=== PATIENT | male | born 1985 | race Caucasian/White ===

== ENCOUNTER 2024-02-10 05:24 | Day surgery (SDC) | payer OTHER, SELFPAY ==
--- NOTE | 2024-01-27 07:06 | EKG12_ITS ---
Test Reason : PREOP Blood Pressure : */* mmHG Vent. Rate : 64 BPM Atrial Rate : 64 BPM P-R Int : 178 ms QRS Dur : 80 ms QT Int : 382 ms P-R-T Axes : 22 41 62 degrees QTcB Int : 394 ms Normal sinus rhythm Normal ECG Confirmed by Benja Trejo ([id number]), commercial production editor DAPHNE CORDERO ([id number]) on 01/28/2024 5:49:41 AM Referred By: Sony Rivera Confirmed By: Benja Trejo
[2024-01-27 08:56] LABS: Absolute Neutrophil Count 4.9 X10^3/uL (2.0-7.7); Basophil# 0.07 X10^3/uL; Basophil% 0.8 % (0-1); Eosinophil# 0.42 X10^3/uL; Eosinophils% 5.1 % (0-5); Hematocrit 44.1 % (40-54); Hemoglobin 15.6 g/dL (13.0-16.5); Lymphocyte % 26.5 % (19-41); Mean Corp Hgb Conc 35.4 g/dL (32-36); Mean Corpuscular Hgb 31.1 pg (27.0-32.0); Mean Platelet Vol. 9.7 fl (6.2-12.0); Monocyte# 0.71 X10^3/uL; Monocyte% 8.6 % (0-10); NRBC Flagged by Analyzer 0 % (0-5); Neutrophil # 4.85 X10^3/uL (2.7-7.7); Neutrophil % 58.5 % (47-70); Platelet Count 277 K/mm3 (150-450); RBC Distribution Width SD 38.7 fl (35.1-43.9); Red Blood Count 5.01 M/mm3 (4.6-6.2); White Blood Count 8.3 K/mm3 (4.4-11.0)
[2024-01-27 09:45] LABS: Anion Gap 6 (5-15); BUN 11 mg/dL (7-18); BUN/Creat Ratio 10.4 RATIO (10-20); Calcium,Total 9.6 mg/dL (8.5-10.1); Chloride 106 mmol/L (98-107); Creatinine, Serum 1.06 mg/dL (0.70-1.30); EST Glomerular Filtration Rate 83 mL/min (>60); Est Glom Filt Rate - Afr Amer 100 mL/min (>60); Glucose 99 mg/dL (74-106); Potassium 3.8 mmol/L (3.5-5.1); Sodium Level 139 mmol/L (136-145)
[2024-01-27 10:09] LABS: HIV - WCH Non-Reactive (Nonreactive); Hepatitis B Surface Antibody Reactive; Hepatitis C Antibody Non-Reactive (Nonreactive)
[2024-01-27 12:53] LABS: Magnesium 2.3 mg/dL (1.6-2.6)
[2024-01-28 06:09] LABS: Hepatitis A AB, Total Negative (Negative)
[2024-02-10] VITALS (11 sets, daily range): BP systolic 108–149; BP diastolic 65–95; PULSE 72–91; RESP 16; TEMP 35.9–36.4; O2SAT 90–99; BMI 31.7
[2024-02-10] MEDS: Acetaminophen 500 MG Tablet 1000 MG PO (06:13)
[2024-02-10] MEDS: Magnesium 1 GM over 15 mins IV (06:14)
--- NOTE | 2024-02-10 06:30 | RAD_ITS ---
PROCEDURE: C5-C6 and C6-C7 disc placement. DATE OF EXAMINATION: February 10, 2024. INDICATION: Male, 38 years old. Chronic cervical pain. FLUOROSCOPY TIME (if supplied): (24.3 seconds) minutes/seconds. 17.97 mGy. 8 images were submitted. RAD/Cerv Spine 2 or 3 Views IMPRESSION: Fluoroscopic services provided for C5-C6 and C6-C7 disc placement. Electronically Signed: Sravan Corona MD at 11:09 EST ,
--- NOTE | 2024-02-10 06:43 | PRE.ANES_ITS ---
ASA Classification* ASA Classification ASA Classification: 2 Assessment & Plan Anesthesia* Anesthesia Assessment Anesthesia Assessment: Discussed sedation and/or anesthesia options, risks, benefits, and alternatives with patient/parents/legal guardian/POA. Questions invited. The patient/parents/legal guardian/POA seems to understand and agrees to proceed with anesthesia plan. Reviewed the physical assessment, medical history, allergy history and patient home medications list prior to surgery/procedure/anesthetic and documented any changes. Performed airway and anesthesia risk assessments. Anesthesia Type Anesthesia Type: General Anesthesia Focused Assessment* Temperature: 97.5 F Pulse Rate: 73 Blood Pressure: 149/93 Respiratory Rate: 16 Pulse Ox: 97 Airway Assessment Mouth opens: >3 cm Mallampati Score: II Focused Labs Anesthesia Preop lab: CBC WBC 8.3 K/mm3 (4.4-11.0) 01/27/24 07:44 RBC 5.01 M/mm3 (4.6-6.2) 01/27/24 07:44 Hgb 15.6 g/dL (13.0-16.5) 01/27/24 07:44 Hct 44.1 % (40-54) 01/27/24 07:44 Plt Count 277 K/mm3 (150-450) 01/27/24 07:44 CHEMISTRY Potassium 3.8 mmol/L (3.5-5.1) 01/27/24 07:44 Sodium 139 mmol/L (136-145) 01/27/24 07:44 Magnesium 2.3 mg/dL (1.6-2.6) 01/27/24 07:44 BUN 11 mg/dL (7-18) 01/27/24 07:44 Creatinine 1.06 mg/dL (0.70-1.30) 01/27/24 07:44 Glucose 99 mg/dL (74-106) 01/27/24 07:44 COAG Pre-Assessment Diagnosis/Proposed Procedure Planned Operative Procedure(s): CERVICAL DISC REPLACEMENT C5-C6 C6-C7 Anesthesia History Anesthesia History - roll filler: Anesthesia History - roll filler Hx Hospitalization No 01/21/24 10:46 Any Problems With Anesthesia No 01/21/24 10:46 Cholinesterase deficiency No 01/21/24 10:46 You/Your Family Experience No 01/21/24 10:46 fever (hyperthermia) with Relationship Recent Exposure to Contagious No 02/10/24 06:04 Disease Does patient have nerve No 01/21/24 10:46 stimulator Patient instructed to have device shut off --Does patient have Pacemaker No 02/10/24 06:04 or ICD? When Was Last Pacemaker Check QUESTION #4 FULL TEXT: You/Your Family Experience fever (hyperthermia) with Anesthesia Last Oral Intake Last Oral intake: Last Oral Intake NPO since 03:30 02/10/24 06:04 Meds taken in AM with sips of water? Meds patient instructed to take am of surgery PONV PONV - roll filler: PONV - roll filler Female No 01/21/24 10:46 HX of Motion Sickness No 01/21/24 10:46 HX of N/V After Surgery No 01/21/24 10:46 Non-Smoker Yes 01/21/24 10:46 Duration of Surgery greater Yes 01/21/24 10:46 than 60 minutes Number of Risk Factors 2 01/21/24 10:46 PONV Score Moderate Risk 01/21/24 10:46 Height & Weight Height & Weight: Anesthesia: Height & Weight Height 6 ft 1 in 02/10/24 06:04 Weight: 109.1 kg 02/10/24 06:04 Body Mass Index (BMI) 31.7 02/10/24 06:04 Respiratory Assessment Respiratory Assessment - roll filler: Respiratory Tract Infection Hx - roll filler Hx Respiratory Tract Infection No 01/21/24 10:46 STOP Sleep Apnea STOP Sleep Apnea - roll filler: STOP Sleep Apnea - roll filler Hx Hypertension No 01/21/24 10:46 Hx Sleep Apnea No 01/21/24 10:46 CPAP BIPAP Do you snore loudly (louder Yes 01/21/24 10:46 than talking or can be heard Do you often feel tired/ Yes 01/21/24 10:46 fatigued/ sleepy during daytime? Has anyone observed you stop No 01/21/24 10:46 breathing during sleep? STOP Results Positive 01/21/24 10:46 QUESTION #5 FULL TEXT : Do you snore loudly (louder than talking or can be heard through closed doors)? 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 Specify any problems Hx of Preganancy in last 3 N/A 01/21/24 10:46 Months Nurse Filling Out Transfusion DSCHRIBER 01/21/24 10:46 & Questions: Date: 01/21/24 01/21/24 10:46 Time: 10:48 01/21/24 10:46 Patient unable to answer at this time (ie. confused, unrespo /Reproduction History /Reproductive History - roll filler: /Reproductive Hx- roll filler Hx Now No 01/21/24 10:46 Gestational Age (in weeks): EDC: Hx Hx Para Hx Section SAB No 01/21/24 10:46 Active Medications Active Medications: Current Medications Generic Name Dose Route Start Last Admin Trade Name Freq PRN Reason Stop Dose Admin Acetaminophen 1,000 mg 02/10/24 07:30 Acetaminophen 500 Mg Tablet PO 02/10/24 07:31 X1 ONE Dexamethasone Sodium Phosphate 8 mg 02/10/24 07:30 Dexamethasone 10 Mg/Ml Vial IV 02/10/24 07:31 X1 ONE Tranexamic Acid 1,000 mg/ 110 mls @ 440 mls/hr 02/10/24 07:30 Sodium Chloride IV 02/10/24 07:44 X1 ONE Tranexamic Acid 1,000 mg/ 110 mls @ 440 mls/hr 02/10/24 08:30 Sodium Chloride IV 02/10/24 08:44 X1 ONE Magnesium Sulfate 1 gm/ 102 mls @ 408 mls/hr 02/10/24 07:30 02/10/24 06:14 Dextrose IV 02/10/24 07:44 408 mls/hr X1 ONE Administration Cefazolin Sodium 2 gm/ N/A 20 mls @ 400 mls/hr 02/10/24 07:30 IV 02/10/24 07:32 PREOP ONE Lactated Ringer's 1,000 mls @ 15 mls/hr 02/10/24 06:00 IV 02/15/24 19:19 .Q48H SHOAIB Protocol Insulin Human Lispro 1 - 6 unit 02/10/24 07:30 Insulin Lispro 100 Unit/Ml Insuln.Pen SC Q4H PRN PRN BG>/= 180, SEE PROTOCOL Protocol PFSH Medical History Loss of hearing ADHD (attention deficit hyperactivity disorder) Marijuana use Alcohol use Fatty liver Back pain Gastric reflux Former smoker Home Medications ?Medication ?Instructions ?Recorded ?Last Taken ?Type bee pollen 550 mg capsule 550 mg PO DAILY 12/16/23 02/09/24 History cetirizine 10 mg tablet (Zyrtec) 10 mg PO QDAY allergy symptoms 12/16/23 02/09/24 History lisdexamfetamine 30 mg capsule 30 mg PO QDAY 01/13/24 02/09/24 History ROSA 2 tab PO DAILY 01/21/24 02/09/24 History cholecalciferol (vitamin D3) 125 125 mcg PO DAILY 01/21/24 02/09/24 History mcg (5,000 unit) tablet (Vitamin D3) terbinafine HCl 250 mg tablet 250 mg PO DAILY 01/21/24 02/09/24 History Allergy/AdvReac Type Severity Reaction Status Date / Time egg (eggs) Allergy stomach Verified 02/10/24 06:02 upset milk Allergy stomach Verified 02/10/24 06:02 upset Surgical History History of shoulder surgery History of tonsillectomy and adenoidectomy Hx of wisdom tooth extraction Social History Smoking Status: Former smoker Review of Systems (Anesthesia) ROS Narrative System reviewed and no additional complaints, except as documented.
[2024-02-10 07:05] LABS: Bedside Glucose 121 mg/dL (74-106)
--- NOTE | 2024-02-10 07:31 | HP.PCM_ITS ---
History and Physical MR#: [id number] Acct: [id number] Name: ROBBY FERNANDEZ Rep #: [id number] : 1985 Provider: Dr. Sony Rivera MD Age/Sex: 38/M Location: [facility] [place] Status: Signed Intake Vital Signs 12/16/2407:58 Height 6 ft 1 in Weight: 242 lb BMI 31.9 Intake Visit Reasons: cervical spine Allergies egg (eggs) Allergy (Verified 01/27/24 15:02) stomach upsetmilk Allergy (Verified 01/27/24 15:02) stomach upset Medications ?Medication ?Instructions ?Recorded ?Confirmed ?Type bee pollen 550 mg capsule 550 mg PO DAILY 12/16/23 01/27/24 History cetirizine 10 mg tablet (Zyrtec) 10 mg PO QDAY allergy symptoms 12/16/23 01/27/24 History lisdexamfetamine 30 mg capsule 30 mg PO QDAY 01/13/24 01/27/24 History ROSA 2 tab PO DAILY 01/21/24 01/27/24 History cholecalciferol (vitamin D3) 125 125 mcg PO DAILY 01/21/24 01/27/24 History mcg (5,000 unit) tablet (Vitamin D3) terbinafine HCl 250 mg tablet 250 mg PO DAILY 01/21/24 01/27/24 History PFSH Medical History Loss of hearing ADHD (attention deficit hyperactivity disorder) Marijuana use Alcohol use Fatty liver Back pain Gastric reflux Former smoker Surgical History History of shoulder surgery History of tonsillectomy and adenoidectomy Hx of wisdom tooth extraction Social History Smoking Status: Former smoker HPI cervical spine Details: This documentation accurately reflects the service provided and the decisions made by me, Dr. Sony Rivera MD 01/27/24 [id number]. Part of today?s visit was documented by Naye LOCO, acting as scribe. ROBBY FERNANDEZ is a 38 year old M here today for pre-op cervical spine, dos: 02/04/24. Patient denies any changes. HPI from 01/13/24: ROBBY FERNANDEZ is a 38 year old M here today for a followup on his cervical spine. Patient notes that he continues to have cervical spine pain and denies any changes in his symptoms. Patient complains of pain down his left arm and muscle atrophy. He notes that he is starting to have pain down his right arm as well. He would like to discuss surgical options. A three level disc replacement was denied by insurance. His pain is worse below the elbow. HPI from 12/16/23: ROBBY FERNANDEZ is a 38 year old M here today for cervical spine pain. He has had pain for about 6 years. Patient denies any prior injury. He states that he first noticed pain when doing overhead squats. Patient denies any prior surgery to his cervical spine. Patient notes that he has pain into his cervical spine. He complains of radiating pain into his left arm and into his left pectoral. He is starting to get muscle atrophy of his left arm. Patient complains of weakness into his left arm. He has numbness into his radial 3 fingers on the dorsal aspect. Patient notes that his pain worsens with any use. 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 He saw Dr Mccray for an epidural injection about a month and a half ago, which was helpful for pain but now its wearing off. Patient takes ibuprofen or tylenol for pain as needed. Patient brought a disc with him with an xray and MRI. Denies any balance changes or dexterity issues. Ortho Exam General General: Yes no acute distress Neurologic: Yes alert and Yes oriented x3 Spine SPINE TESTING CERVICAL THORACIC LUMBAR Musculoskeletal Strength 0=absent - 5=normal Details: Neurological exam of the upper extremities shows 5x5 power except grade 4+ in left wrist extension and triceps. Normal sensations across all dermatomes. No hyperreflexia. No midline or paraspinal tenderness. Muscle atrophy of the left brachial radialis, biceps, deltoid, and triceps. Rafael's negative. No clonus. Romberg's negative. Single leg stand shows good balance bilaterally. Lift off test positive on left suggestive shoulder internal rotator weakness. Coding Level of Care Code Off vis,est,level 4 Diagnoses Cervical radiculopathy M54.12 Time Spent (min) 35 Assessment and Plan Assessment and Plan (1) Cervical radiculopathy: Status: Acute Plan Again reviewed prior cervical MRI and xrays today with the patient. Imaging shows disc bulging at C4,5 C5-6, and C6-7. C4-5 shows left foraminal stenosis from likely soft disc herniation, C5-6 central and bilateral foraminal stenosis with cord indentation without any cord signal changes. C6-7 has left foraminal stenosis. Patient is here today for C5-7 disc replacement. Reviewed the benefits and risks of surgery. Risks of surgery include bleeding, infection, dysphagia, hardware failure, adjacent segment degeneration, pneumonia, DVT, pulmonary embolism, atelectasis, gait abnormality, persistent pain, stretch injuries, chance for future surgeries. Patient understands and agrees to proceed with surgery. Explained in detail the procedure. Discussed post surgery restrictions such as no bending, lifting, or twisting. Discussed cervical collar wear schedule after surgery. Answered all questions that he had today in preparation for surgery. Consent was signed. Patient is in agreement.
[2024-02-10] MEDS: Cefazolin 2 GM in Syringe IV (07:46)
[2024-02-10] MEDS: TRANEXAMIC ACID 1,000 MG in 0.9% Normal Saline (100mL Bag) 100 ML 440 MG IV ×2 (07:50→09:46)
[2024-02-10] MEDS: dexAMETHasone 10 MG/ML Vial 8 MG IV (08:02)
--- NOTE | 2024-02-10 10:15 | OP.PCM_ITS ---
Procedures Musculoskeletal [id number]: Other Procedure See Report Operative Report (Standard) Operative Information Date of Procedure: 02/10/24 Pre-Operative Diagnosis: C5-7 disc degeneration with stenosis, radiculopathy Post-Operative Diagnosis: Same Surgery/Procedure Performed: C5-7 cervical disc replacement veneer drier feeder: Yes Filling Mixer: Jareth Phan Tasks completed by physician assistant certified: Closing, Removing tissue, Hemostasis: Electrocautery and Retracting Type of Anesthesia: General RN Documented Start/Stop Times: Operation Date: 02/10/24 07:30 Case Time Into Pre-Op 02/10/24 05:46 Out of Pre-Op 02/10/24 07:35 Anesthesia Start 02/10/24 07:41 Into Room 02/10/24 07:41 Procedure Start 02/10/24 08:10 Procedure Start Time: 08:10 Procedure Stop Time: 10:20 Select all DRAINS/GRAFTS/IMPLANTS that apply: Prosthetic device Prosthetic device details: Zimvie Mobi-C cervical disc replacement prosthesis Estimated Blood Loss: 20 cc Specimen collected: No Description of surgery: Preoperative diagnosis: C5-7 disc degeneration with stenosis, with radiculopathy Postoperative diagnosis: Same Name of procedure: C5-7 anterior cervical disc replacement - Cervical disc replacement C5-6, CPT code 27499 - Cervical disc replacement C6-7, CPT code 23844/51 Attending surgeon: Sony Rivera M.D. Anesthesia: Gen. endotracheal Estimated blood loss: 20 mL Complications: None Instrumentation used: Elizabeth [employer]omet Mobi-C cervical disc replacement implants Indications: The patient is a pleasant 38-year-old gentleman who presented with symptoms of neck pain, progressive left upper extremity radicular pain numbness and weakness. MRI revealed C5-7 disc degeneration with stenosis, left worse than right severe foraminal stenosis. After prolonged course of nonsurgical treatment, patient requested surgical intervention. All risks and benefits of the procedure were explained to the patient. The risks include but are not limited to infection, bleeding, injury to nerves and vessels, vertebral artery injury, spinal cord injury, paralysis, vocal cord paralysis, injury to esoph gurpreet, need for further procedures, adjacent segment degeneration, heterotopic ossification, implant loosening, implant failure, DVT, pulmonary embolism, cardiopulmonary event, etc. Procedure: The patient was identified in the preoperative suite using unique patient identifiers. Skin was marked consent was taken and all questions were answered. The patient was then brought back to the operative room and a timeout was performed. General endotracheal anesthesia was given. Intraoperative neuro monitoring leads were applied. The patient was carefully positioned supine on a regular OR table. A lateral x-ray with a C-arm was done to identify the level and to define the incision. The anterior neck was then prepped and draped in the usual fashion. A final timeout was then performed. A transverse skin incision was then taken to the left of midline 2 fingerbreadths above the clavicle. Subcutaneous tissue was then divided with Bovie. Platysma was identified and cut transversely with scissors. The fascial interval between the sternocleidomastoid and the larynx was developed. Omohyoid was identified and mobilized medially and inferiorly. Carotid sheath was laterally while the esophagus with the larynx was retracted medially to reach the prevertebral fascia. All prevertebral layers of fascia were bluntly dissected and a Bellflower pin was placed into one of the bodies. A lateral C-arm image was used to confirm the correct level. Once this was done longus coli muscle was elevated on both sides at and above and below C5-7 discs. Shadow line retractors were then placed with great care to protect the esophagus. A long handle knife was then used to perform annulotomy at C5-6. Disc fragments were removed with the pituitary. Bellflower pins were placed in C5 and C6 for disc distraction. AP view confirmed midline placement of Bellflower pins. Curettes were utilized to remove cartilage from the endplates. Discectomy was performed laterally up to the uncovertebral joints. Adequate decompression was performed, PLL was thinned out. Foramina were decompressed without taking down the uncovertebral processes. Once the disc space was prepared, trials of various sizes were utilized. Thorough irrigation was given. Mobi-C anterior cervical disc replacement implant of size 17 x 17 mm with 5 mm height was then placed under fluoroscopic guidance. Adequate positioning was noticed on AP and lateral views. The retractors were then moved to the C6-7 disc space and the procedure of complete discectomy and decompression was repeated. Mobi-C implant of 17 x 17 mm with 5 mm height was placed at this level. AP and lateral fluoroscopy confirmed good position. Thorough irrigation was again given. Hemostasis was achieved with FloSeal and bipolar cautery. Closure was done with 3-0 Vicryl for the platysma and subcutaneous tissue layers and 4-0 Monocryl for the skin. Steri-Strips were applied and dressing was done with 4 x 4 gauze and Tegaderm. A cervical collar was then applied. The patient was then woken up from anesthesia extubated and taken to PACU in stable condition. Intraoperative neuro monitoring was performed throughout this procedure. Motor evoked potentials were run periodically. All potentials remained at baseline throughout the procedure. I was present for the entire surgery and performed the surgery myself. Surgical Findings: See operative note Complications Complications: No
--- NOTE | 2024-02-10 10:47 | PCM.POST.ANE ---
Anesthesia: Postop Eval I Current Vital Signs Temperature: 97 F Pulse Rate: 82 Blood Pressure: 133/78 Respiratory Rate: 16 Pulse Ox: 97 Oxygen Delivery Method: Simple Mask Oxygen Flow Rate (L/min): 6 Assessment Airway patent: Yes Spontaneous unlabored respirations: Yes Mental status: Asleep nausea: No Vomiting: No Anesthesia Complication: No Fluid Hydration Crystalloid volume administer (ml): 700 Total IV fluid infused: 700 Progress Note Anesthesia document: Postop Eval 1 completed: Yes
--- NOTE | 2024-02-10 17:49 | PCM.POSTANE2 ---
Anesthesia Postop Eval I Sum Postop Eval Completion status Anesthesia document: Postop Eval 1 completed: Yes Anesthesia Postop Eval I Summary Anesthesia Postop Eval I Summary: Anesthesia Postop Eval I: Assessment Summary Airway patent Yes 02/10/24 10:47 DENTAL ASSOCIATE.LAURENOBAdam Spontaneous unlabored Yes 02/10/24 10:47 DENTAL ASSOCIATE.NAVARRO respirations Mental status Asleep 02/10/24 10:47 DENTAL ASSOCIATE.NAVARRO nausea No 02/10/24 10:47 DENTAL ASSOCIATE.NAVARRO Vomiting No 02/10/24 10:47 DENTAL ASSOCIATENIKUNJ Anesthesia Postop Eval I: Fluid Summary Crystalloid volume administer 700 02/10/24 10:47 JIN.NAVARRO (ml) Colloids volume administered ( ml) Blood Product volume administered (ml) Total IV fluid infused 700 02/10/24 10:47 GERRY Anesthesia Postop Eval I: Summary Notes Anesthesia Complication No 02/10/24 10:47 GERRY Anesthesia Complication Comment: Post-operative progress note Anesthesia: Postop Eval II Evaluation Mental status: Awake Pain Level: 0 nausea: No Vomiting: No
== END 2024-02-10 12:52 | disposition home or self-care (01) ==
LOC: SDC 05:33 → AC 05:33
PROVIDERS: Anesthesiology; PCP Student in an Organized Health Care Education/Training Program; Referring Provider Orthopaedic Surgery Orthopaedic Surgery of the Spine; Visit Provider Orthopaedic Surgery Orthopaedic Surgery of the Spine
PROC: (CPT 22856; principal; 2024-02-10 07:00)
DX: M50.123 Cervical disc disorder at C6-C7 level with radiculopathy (principal); M50.121 Cervical disc disorder at C4-C5 level with radiculopathy; M50.122 Cervical disc disorder at C5-C6 level with radiculopathy; M48.02 Spinal stenosis, cervical region; F90.9 Attention-deficit hyperactivity disorder, unspecified type; Z79.899 Other long term (current) drug therapy; Z87.891 Personal history of nicotine dependence
CPT/HCPCS: 22856; 22858; 36415; 72040; 76000; 80048; 82962; 83735; 85025; 86703; 86706; 86708; 86803; 86850; 86900; 86901; 87081; 93005; A4648; J2405; J3475

== ENCOUNTER 2024-04-02 08:00 | Outpatient (RCR) | payer OTHER, SELFPAY ==
--- NOTE | 2024-03-09 09:21 | HP.PTEVAL_ITS ---
Patient's Visit Information Visit Information Visit Information: ROBBY FERNANDEZ is a 38 year old M referred to Physical Therapy by ERLINDA Johnson with a diagnosis of S/P cervical disc replacement, DOS: 02/10/24. Date of Evaluation: 03/05/24 Physical Therapist: Sameer Quinonez DPT Visit Plan Frequency: 1x/Week Duration: 6 Weeks Plan: 1) postural strengthening, ease into cervical stability 2) L UE strength, elbow, wrist exercises Subjective Subjective: Pt. here today for cervical disc replacement, DOS 02/10/24. Pt. reports symptoms started in 2018. Pt. reports now he is overall doing well. Pt. reports initial symptoms were on on the L side, but not they are on the R side, mostly with getting up in the morning. He also report increased symptoms with frequent cervical rotation. No N/T in UEs. Pt. reports that his L UE was getting so weak prior to surgery. He has noticeable atrophy in his LUE. Pt. reports having atrophy to his bicep, medial wrist flexors and lateral aspect of his forearm. He flores noticed a much improved symptoms since surgery, but is still having some weakness. Much less N/T in his LUE. He does not have some R sided soreness with rotation to R side. Pt. does have some issues upon waking up, due to stiffness. He is back to work, but on limited duty. 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 Pt. is hopeful to get back to all recreational and work activities without limitations. Pain Cervical spine: Pain Intensity (Out of 10): 2 Pain Intensity Range: 0 and 2 Comment: R side Objective Objective: POSTURE: Pt. has good posture in stance. No major abnomalities noted. PALPATION: pt. has some tenderness at B UT region, but other medina normal. NEURO: Pt. has good DTR of BUEs. Pt. does have some marked atrophy of LUE, but rest normal. ROM: CERVICAL SPINE: ext min/nil loss NE, flexion min loss (tightness), rotation R min loss NE, rotation L min loss NE, SB min loss bilat NE. PT. has full ROM of BUEs without increase in symptoms. MMT: CERVICAL SPINE: DNT. B shoulders: flexion 5/5, abd 5/5, ER 5/5, shurg 5/5 bilat, IR 5/5 bilat. L elbow: flexion 4+/5, ext 4+/5, wrist flexion 4+/5, wrist ext 4+/5. 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 Balance/Special Test Scores Oswestry Neck Score: 3 Goals Goal 1:: LTG: Pt. to be I with HEP. Goal Time Frame: 4-6 Weeks Goal 2:: STG: Pt. to report 0/10 pain in B UT region. Goal Time Frame: 2-4 Weeks Goal 3:: LTG: pt. to have symmetrical B UE strength. Goal 4:: LTG: Pt. to resume all work activities without increase in symptoms. Goal Time Frame: 4-6 Weeks Goal 5:: LTG: Pt. to resume all gym activities without increase in cervical spine pain. Goal Time Frame: 6-8 Weeks Rehabilitation Potential Physical Therapy Diagnosis: Pt. has signs and symptoms of cervical disc replacement, DOS: 02/10/24. Pt. has signs and symptoms consistent with cervical disc replacement. He has subsequent hypomobility and weakness. His weakness is more in his L UE, but most likely stemmed from prolonged nerve entrapment. Pt would benefit in PT to work on his LUE strength and postural strengthening to reduce risk of future injury. Rehabilitation Potential: Excellent Anticipated Interventions Patient/Client Instruction: Educate patient on: Condition, Plan of Care, Risk Factors and Benefits of Fitness Program For the Purpose of:: To improve decision making, To facilitate caregiver knowledge, To improve self management, To prevent re-injury, To improve ability to perform tasks related to life management and To improve tolerance to ADL's Therapeutic Exercise to Include: Strength training, Power training, Endurance training, Dynamic Lumbar Stabilization, Jessica Exercises and Scapular Strength/Stabilization For the Purpose of:: To decrease pain, To increase ROM, To improve nutrient delivery to tissue, To increase oxygenation perfusion, To improve muscle performance and motor function, To improve safety with gait, To assume or resume ADL's, To reduce risk of recurrence, To improve safety and To improve health and function Text: Thank you for the opportunity to evaluate your patient. For Medicare and Medicare HMO plans, please review the plan of care and approve it. It will need to be FAXED BACK to us at [phone] for Medicare purposes. For Medicare only, by signing this I certify the plan of care. Please let me know if there are questions or concerns regarding this plan of care. Physician Signatu re: Date:
--- NOTE | 2024-04-02 08:45 | HP.PTREVAL_ITS ---
Re-Evaluation Intro: ERLINDA Johnson, It has been my pleasure to treat ROBBY FERNANDEZ over the last 5 visits for S/P cervical disc replacement, DOS: 02/10/24. Please see the progress note below for an update on the physical therapy plan of care! Subjective Subjective: Pt. reports overall doing well. He does report some R sided UT symptoms that comes and goes. Pt. reports that it occasionally goes to R deltoid region. Objective Objective/Function: ROM: CERVICAL: flexion min loss NE, ext nil/min loss mild increase R sided UT region, rotation nil loss bilat mild increase on R side. SB nil loss John NE. Pt. has full ROM of BUEs without increase in symptoms. 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 Pt. has some R UT soreness, but overall doing well. At this point in time he has started to ease back into light gym activities and has tolerated well. After talking with Robby we are going to have his work on he exercises on his own slowly back into all activities. Pt. is going to trial a massage to work B UT tightness. He is to follow back up with me in a few weeks to assess how he is doing. If doing well I will DC from PT at that point in time. Plan Plan Plan: Pt. to trial PT on his own and follow back up with me in a few weeks. Balance/Gait/Functional tests Balance/Special Test Scores Oswestry Neck Score: 1 Goals Goals Goal 1:: LTG: Pt. to be I with HEP. Goal Time Frame: 4-6 Weeks Goal Progress: Goal Met Goal 2:: STG: Pt. to report 0/10 pain in B UT region. Goal Time Frame: 2-4 Weeks Goal Progress: Progressing Goal 3:: LTG: pt. to have symmetrical B UE strength. Goal Progress: Goal Met Goal 4:: LTG: Pt. to resume all work activities without increase in symptoms. Goal Time Frame: 4-6 Weeks Goal Progress: Goal Met Goal 5:: LTG: Pt. to resume all gym activities without increase in cervical spine pain. Goal Time Frame: 6-8 Weeks Goal Progress: Progressing Anticipated Interventions Anticipated Interventions Patient/Client Instruction: Educate patient on: Condition, Plan of Care, Risk Factors and Benefits of Fitness Program For the Purpose of:: To improve decision making, To facilitate caregiver knowledge, To improve self management, To prevent re-injury, To improve ability to perform tasks related to life management and To improve tolerance to ADL's Therapeutic Exercise to Include: Strength training, Power training, Endurance training, Dynamic Lumbar Stabilization, Jessica Exercises and Scapular Strength/Stabilization For the Purpose of:: To decrease pain, To increase ROM, To improve nutrient del jorge to tissue, To increase oxygenation perfusion, To improve muscle performance and motor function, To improve safety with gait, To assume or resume ADL's, To reduce risk of recurrence, To improve safety and To improve health and function Re-Evaluation Ending Re-evaluation ending: Please do not hesitate to contact me at [phone] by phone or if you have questions or concerns regarding this new plan of care! Sincerely, Sameer Quinonez DPT
== END 2024-04-02 19:00 | disposition home or self-care (01) ==
LOC: PT 08:00
PROVIDERS: PCP Student in an Organized Health Care Education/Training Program; Referring Provider Student in an Organized Health Care Education/Training Program; Visit Provider Student in an Organized Health Care Education/Training Program
DX: Z98.890 Other specified postprocedural states (principal)
CPT/HCPCS: 97110; 97161; 97530